=== PATIENT | female | born 1960 | race Caucasian/White ===

== ENCOUNTER 2016-11-09 21:14 | Emergency (ER) | payer OTHER ==
[~2016-11-09] VITALS: Ht 172.7 cm; Wt 86.4 kg
[~2016-11-09 21:14] MED LIST: ACYC400T2 PO; AMLO10TA3 PO; DOCU250C2 PO; HYDR2TAB27 PO; LISI10TA PO; MV-M1CAP15 PO; OMEG-38 PO; PRAZOSIN PO; QUET50TA55 PO; SERT50TA9 PO
[2016-11-09] MEDS ORDERED: Ondansetron 2 mg/mL 2 mL Inj IVPUSH PRN (21:40)
[2016-11-09] MEDS: HYDROmorphone 0.5 mg/0.5 mL iSecure Syringe IVPUSH PRN (21:45)
--- NOTE | 2016-11-09 21:46 | ED.REPORT ---
HPI-Abd Pain F 40 and Over Date of Service Nov 09, 2016 ED Provider: Zach Gil MD Pt is a 56 y/o female w/ a hx of cervical CA, colon CA, presenting to the ED c/ o abdominal pain onset yesterday. On Oct 28 at [facility] she had a total hysterectomy, kidney mass removal, colon resection, and left ureteral stenting. Yesterday, she began experiencing abdominal pain, leaking colostomy, and no urine output. Pt denies fevers, vomiting, dysuria. Nursing Notes Stated Complaint: ABDOMINAL PAIN Nursing Notes Reviewed: Yes Allergies: Coded Allergies: codeine (Verified Allergy, Severe, ANAPHYLAXIS TAKES OXYCODONE WITH NO PROBLEMS, ALSO..., 05/06/16) GIVEN HYDROMORPHONE AND FENTANYL IN 2014 morphine (Verified Allergy, Severe, ANAPHYLAXIS OK WITH OXYCODONE, 05/06/16 ) Scheduled ([Prazosin]) PO DAILY Acyclovir (Acyclovir) 400 Mg Tablet 400 MG PO BID Amlodipine (Amlodipine) 10 Mg Tablet 10 MG PO DAILY Docusate Sodium (Docusate Sodium) 250 Mg Capsule 250 MG PO EVERY OTHER DAY Lisinopril (Lisinopril) 10 Mg Tablet 10 MG PO DAILY Mv-Mn/FA/Vit K/Lycop/Lut/Coq10 (Daily Multivitamin Capsule) 200-100MCG Capsule 1 EACH PO DAILY [place]-3/Dha/Epa/Fish Oil (Fish Oil 1,000 mg Softgel) 1 Each Capsule 1 EACH PO DAILY Quetiapine Fumarate (Quetiapine Fumarate) 50 Mg Tablet 50 MG PO HS Sertraline HCl (Sertraline) 50 Mg Tablet 50 MG PO DAILY Scheduled PRN Hydromorphone (Dilaudid) 2 Mg Tablet 2 MG PO Q4H PRN PRN Pain General Time Seen by MD: 21:32 Chief Complaint Abdominal pain Hx Obtained From: Patient, EMS Arrived By: Ambulance Sudden in Onset?: No Onset Occurred: 1 day ago Symptom Duration: Since onset Progression since Onset: Gradually worsening Location: : Diffuse Quality: Painful Radiation: : Does not radiate Severity: Current: Mild Severity: Maximum: Moderate Past Medical History Past Medical History Cervical cancer Ovarian cyst Sepsis admit with diverticulitis. As part of this workup her Colon CA was diagnosed Past Surgical History Hernia repair Sigmoid colectomy Kidney mass removal Reports: Appendectomy, Cholecystectomy Smoking History Current Every Day Smoker Social History Alcohol Use: Denies alcohol use Drug Use: Denies drug use Ambulatory Status Independent Review of Systems Constitutional: Denies: Chills, Fever Respiratory: Denies: Non-productive cough, Shortness of breath Cardiovascular: Denies: Chest pain, Dyspnea on exertion GI: Reports: Abdominal pain, Denies: Nausea, Vomiting Female: Reports: Urination decreased, Denies: Dysuria Complete sys rev & neg: except as marked. Physical Exam Vital Signs Vital Signs (First) Date Time Temp Pulse Resp B/P Pulse Ox O2 Delivery O2 Flow Rate FiO2 11/09/16 21:56 37.1 82 26 100/40 96 Room Air Initial VS: Reviewed, Vital signs normal Head / Eyes: Atraumatic, Normocephalic, PERRL ENT: Mucous membranes moist, Conjunctiva normal, No scleral icterus Neck: Supple, Full range of motion Extremities: Vascular intact, Neuro intact, No swelling, No tenderness Skin: Warm, Dry, No cyanosis Neurologic: Alert, Oriented, Nonfocal Psychiatric: Mood/affect normal, Behavior normal, Normal thought content General/Constitutional: Awake, Alert, No acute distress, Cooperative, Not toxic appearing Respiratory / Chest: Atraumatic, Breath sounds NL, Breath sounds = bilat, No respiratory distress, No rales, No rhonchi, No wheezing, No retractions, No stridor, No chest tenderness, No chest wall deformity, No crepitus Cardiovascular: Heart rate NL, Regular rhythm, Heart sounds NL, No gallop, No murmurs, No rubs, Cap refill not delayed, Peripheral circulation NL Abdomen: Atraumatic, Soft, No guarding, No rebound Diffuse abdominal tenderness around the ileostomy site. No erythema Back: Full range of motion, Painless range of motion Interpretation & Diagnostics Lab Results Interpretation Result Diagram: 11/09/16212811/09/162128 Test 11/09/16 21:29 White Blood Count 22.7th/mm3 (3.8-10.1) Red Blood Count 3.73mil/mm3 (3.90-5.20) Hemoglobin 11.0g/dL (12.0-15.6) Hematocrit 33.1% (35.0-46.0) Mean Corpuscular Volume 88.7fL (81-100) Mean Corpuscular Hemoglobin 29.5pg (27.0-35.0) Mean Corpuscular Hemoglobin Concent 33.2% (32.0-37.0) Red Cell Distribution Width 14.5% (12.3-15.4) Platelet Count 559bil/L (150-400) Neutrophils (%) (Auto) 73.8% (40-74) Lymphocytes (%) (Auto) 18.3% (14-46) Monocytes (%) (Auto) 7.0% (4-12) Eosinophils (%) (Auto) 0.4% (0-5) Basophils (%) (Auto) 0.1% (0-3) Sodium Level 130mEq/L (134-144) Potassium Level 4.2mEq/L (3.5-5.2) Chloride Level 83mEq/L (97-108) Carbon Dioxide Level 24mmol/L (18-29) Blood Urea Nitrogen 45mg/dL (6-24) Creatinine 5.09mg/dL (0.57-1.00) Estimat Glomerular Filtration Rate 12mL/min (>59) Glucose Level 153mg/dL (60-99) Calcium Level 8.7mg/dL (8.5-10.1) Magnesium Level 1.8mg/dL (1.6-2.6) Total Bilirubin 0.3mg/dL (0.0-1.2) Aspartate Amino Transf (AST/SGOT) 24U/L (0-50) Alanine Aminotransferase (ALT/SGPT) 20U/L (0-32) Alkaline Phosphatase 95U/L (25-150) Total Protein 7.2g/dL (6.4-8.4) Albumin 4.0g/dL (3.4-5.0) Lipase 55U/L (13-60) CT Abd / Pelvis Interpretation Conclusion: 1. Dilatation of mild distal small bowel loops through the ileostomy. Findings suggestive of ileus. Small bowel obstruction with the zone of transition at the ostomy is a consideration in the appropriate clinical setting. 2. Moderate presacral fluid with few foci of gas. Developing abscess and/or anastomatic leak is not excluded. 3. Left ureteral stent. Radiologist: Ian Weathers MD at 0020 Study type: Abdominal CT IV contrast Interpretation / Wet Read by: Interpret - Radiologist, Discussed w radiologist Re-Eval/Medical Decision Med Decision/Clinical Course 56-year-old female with recent partial hemicolectomy, hysterectomy, removal of kidney mass at outside hospital presenting with abdominal pain today. CT head and pelvis shows obstruction versus ileus proximal to ileostomy as well as possible anastomotic leak. White blood cell count is elevated 22,000. She is anuric with no urine on Elizabeth placement and no urine in her bladder on bladder scan.. Her creatinine is 5 previously normal.. Discussed with general surgeon at [facility] who accepts transfer. Diagnosis acute kidney injury and small bowel obstruction versus ileus possible anastomotic leak. Zosyn given. Re-Evaluation/Progress : Time of Eval: 01:02 Re-Evaluation/Progress Note: Pt rechecked. Informed pt of need for transfer to for proper continuity of surgical care. She agrees with plan for transfer. Counseled Regarding: Diagnosis, Lab results, Need for transfer Discharge & Departure Primary Impression: SBO (small bowel obstruction) Additional Impression: Acute renal failure Acute renal failure type: unspecified Qualified Code: N17.9 - Acute kidney failure, unspecified Disposition: Transfer, Acute Care Facility Transfer Requested at: 01:02 Receiving Hospital: [facility] Transfer Accepted: Yes Transfer Accepted at: 01:02 Transfer Reason: Higher level of care Patient Status: Stable Patient Informed: Yes Discharge Condition All VS Reviewed: Yes Condition: Stable Referrals: Marlene Rawls MD (PCP) Michele Attestation Portions of this note were transcribed by Immanuel Wilkerson. I, Dr. Gil, personally performed the history, physical exam and medical decision-making; I reviewed and confirmed the accuracy of the information in the transcribed note. Signed by Michele Stringer, 11/09/162149 copies to: Marlene Rawls MD, Ben M MD Nov 09, 2016 21:46 IMMANUEL WILKERSON Nov 09, 2016 21:48
[2016-11-09 21:56] VITALS: BP 100/40; PULSE 82; RESP 26; O2SAT 96
[2016-11-09 22:30] LABS: BASOPHILS % (AUTO) 0.1 % (0-3); EOSINOPHILS % (AUTO) 0.4 % (0-5); Mean Corpuscular Hemoglobin 29.5 pg (27.0-35.0); Mean Corpuscular Volume 88.7 fL (81-100); NEUTROPHILS % (AUTO) 73.8 % (40-74); Platelet Count 559 bil/L (150-400)
[2016-11-09 22:35] LABS: Magnesium 1.8 mg/dL (1.6-2.6)
[2016-11-09] MEDS ORDERED: 0.9% Sodium Chloride 1,000 ML IV ONE ×2 (22:54→22:55)
[2016-11-09] MEDS ORDERED: Piperacillin-Tazo 3.375 Gm Inj 3.375 GM in Dextrose 5% Minibag Plus 50 ML IV ONE (22:55)
[2016-11-09 23:10] VITALS: BP 89/46; PULSE 80; RESP 18; O2SAT 98
[2016-11-10 00:25] VITALS: BP 103/46; PULSE 76; RESP 18; O2SAT 97
[2016-11-10] MEDS: HYDROmorphone 0.5 mg/0.5 mL iSecure Syringe IVPUSH PRN (00:34)
[2016-11-10 02:00] VITALS: BP 94/43; PULSE 79; RESP 18; O2SAT 100
[2016-11-10 02:11] VITALS: BP 89/46; PULSE 80; RESP 18; O2SAT 98
--- NOTE | 2016-11-10 10:24 | DRSVH ---
PROCEDURE: CT ABDOMEN AND PELVIS WITHOUT CONTRAST ([id number]) INDICATIONS: Abdominal pain after recent colectomy TECHNIQUE: Noncontrast 5 mm thick sections acquired from the diaphragms to the symphysis. 5 mm coronal and sagi ttal reformats were then performed. For radiation dose reduction, the following was used: automated exposure control, adjustment of mA and/or kV according to patient size. COMPARISON: [facility], CT, CHEST WITH CONTRAST, 11/14/2014, 10:02. [facility], CT, ABD/PELVIS W/CON (PNL), 10/29/2014, 3:02. [facility], CT, ABD/PELVIS W/CON (PNL), 10/06/2014, 8:25. [facility], CT, CT ABD PELVIS W CON, 09/30/2016, 10:46. FINDINGS: Image quality: Excellent. ABDOMEN: Lung bases: Lung bases are clear. Heart size is normal. Solid organs: Liver and spleen are normal in size. Gallbladder is surgically absent. Pancreas is n ormal in contours. There is a 1.2 x 1.8 cm low density nodule (-17 HU) in the right adrenal gland, mo st likely adrenal myelolipoma. Kidneys are normal in size, without hydronephrosis or nephrolithiasis . There is a left ureteral stent. Peritoneum and bowel: There is partial colectomy and a right lower quadrant ileostomy. Small bowel l oops are dilated and filled with fluid measuring up to 3.4 cm in diameter. No transitional point is i dentified. There is a small amount of free fluid in the presacral region with tiny pocket of air. Willam gical suture is noted in the rectum. Nodes and vessels: No retroperitoneal or mesenteric adenopathy by size criteria. Aorta and inferior vena cava are normal in caliber. Miscellaneous: No ventral hernias. There is a surgical scar in the anterior abdominal wall at midli ne. PELVIS: Genitourinary: Bladder is contracted with a Elizabeth catheter. Miscellaneous: No inguinal hernias or adenopathy. Bones: No suspicious bony lesions. No vertebral body compression fractures. IMPRESSION: 1. There is partial colectomy and ileostomy. Mildly dilated, fluid-filled Small bowel loops are prese nt in the abdomen to the level of ileostomy. There is no transitional point identified. The findings are most compatible with adynamic ileus. Early small bowel obstruction is less likely. 2. Small amount of free fluid with tiny pockets of air in the presacral region. Cannot rule out devel oping postoperative abscess. Recommend clinical correlation and followup. 3. There is a left ureter stent. No hydronephrosis. Elizabeth catheter is noted within the urinary bladde r. 4. Fatty mass in the right adrenal gland compatible with an adrenal myelolipoma. Dictated by: Yessenia Tate M.D. on 11/10/2016 at 10:13 Transcribed by: ANIBAL on 11/10/2016 at 10:24 Approved by: Yessenia Tate M.D. on 11/10/2016 at 19:45
[2017-01-29] MEDS ORDERED: PANT40TA3 PO (08:23)
== END 2016-11-10 02:05 | disposition short-term general hospital (02) ==
LOC: SED 21:14 → EDBD 21:14 → SED 11-10 02:05
DX: K56.69 Other intestinal obstruction (principal); N17.9 Acute kidney failure, unspecified; F17.200 Nicotine dependence, unspecified, uncomplicated; Z90.49 Acquired absence of other specified parts of digestive tract; Z88.5 Allergy status to narcotic agent
CPT/HCPCS: 36415; 51702; 74176; 80053; 83690; 83735; 85025; 87040; 96361; 96365; 96375; 96376; 99285; J1170; J2405; J2543; J7030

== ENCOUNTER 2016-11-14 11:20 | Emergency (ER) | payer OTHER ==
[2016-11-14 11:31] VITALS: BP 162/89; PULSE 100; RESP 18; O2SAT 98
--- NOTE | 2016-11-14 12:02 | ED.REPORT ---
HPI-General Illness Date of Service Nov 14, 2016 ED Provider: Alexis Smith PA-C Bernadette is a 56-year-old female with history of colon cancer presents because she cannot get her colostomy bag to stay on. Patient has a history of a recent admission to [facility] for hysterectomy bilateral salpingo-oophorectomy, proctectomy and coloproctostomy and discharged approximately 9 days ago. She was readmitted 5 days ago and discharged again 2 days ago after was noted that she had extremely low blood pressure in this emergency department. At that time she presented for similar complaint. Today she complains of skin pain around the ostomy site, but states that the ostomy itself is not painful. The ostomy is producing fecal matter regularly. She admits abdominal pain which she associates with her recent procedure and reports has been steadily improving since her surgery. She denies fever, chills, malaise, vomiting, difficulty breathing, chest pain and urinary symptoms. Nursing Notes Stated Complaint: COLECTOMY BAG ISSUES Chief Complaint: General Complaint Nursing Notes Reviewed: Yes Allergies: Coded Allergies: codeine (Verified Allergy, Severe, ANAPHYLAXIS TAKES OXYCODONE WITH NO PROBLEMS, ALSO..., 05/06/16) GIVEN HYDROMORPHONE AND FENTANYL IN 2014 morphine (Verified Allergy, Severe, ANAPHYLAXIS OK WITH OXYCODONE, 05/06/16 ) Scheduled ([Prazosin]) PO DAILY Acyclovir (Acyclovir) 400 Mg Tablet 400 MG PO BID Amlodipine (Amlodipine) 10 Mg Tablet 10 MG PO DAILY Docusate Sodium (Docusate Sodium) 250 Mg Capsule 250 MG PO EVERY OTHER DAY Lisinopril (Lisinopril) 10 Mg Tablet 10 MG PO DAILY Mv-Mn/FA/Vit K/Lycop/Lut/Coq10 (Daily Multivitamin Capsule) 200-100MCG Capsule 1 EACH PO DAILY [place]-3/Dha/Epa/Fish Oil (Fish Oil 1,000 mg Softgel) 1 Each Capsule 1 EACH PO DAILY Quetiapine Fumarate (Quetiapine Fumarate) 50 Mg Tablet 50 MG PO HS Sertraline HCl (Sertraline) 50 Mg Tablet 50 MG PO DAILY Scheduled PRN Hydromorphone (Dilaudid) 2 Mg Tablet 2 MG PO Q4H PRN PRN Pain General Time Seen by MD: 11:31 Chief Complaint Other (cannot seal colostomy bag) Past Medical History Past Medical History Cervical cancer Ovarian cyst Sepsis admit with diverticulitis. As part of this workup her Colon CA was diagnosed Past Surgical History Hernia repair Sigmoid colectomy Kidney mass removal Reports: Appendectomy, Cholecystectomy Smoking History Current Every Day Smoker Social History Alcohol Use: Denies alcohol use Drug Use: Denies drug use Ambulatory Status Independent Review of Systems General: Denies fever, chills, malaise. HEENT: Denies congestion, headache, sore throat. Respiratory: Denies dyspnea, cough, shortness of breath, wheezing. Cardiovascular: Denies chest pain, palpitations. Gastrointestinal: Denies vomiting, diarrhea, abdominal pain. Genitourinary: Denies frequency, urgency, dysuria, hematuria. Otherwise as noted in HPI. Physical Exam General: Well appearing, well developed, well nourished, no acute distress. Head: Atraumatic, normocephalic. Eyes: No scleral icterus or injection. No discharge. Vision grossly intact. ENT: Voice clear, hearing grossly intact. Respiratory: Regular rate and rhythm. Breath sounds present, clear to auscultation and equal bilaterally. No respiratory distress. No increased work of breathing, speaks in complete sentences. Cardiovascular: Regular rate and rhythm, without murmur, gallop or rub. No pedal edema. Gastrointestinal: Ostomy in right lower quadrant, without bag affixed. Productive of soft greenish brown fecal matter, not prolapsed. Surrounding region of erythema and tenderness to light touch. No induration, abscess or discharge. Incision sites are clean, dry, nontender and appear to be healing well. Abdomen otherwise mildly tender without guarding or rebound. Bowel sounds normoactive. Skin: Warm and dry. Neurological: Grossly nonfocal. Psychological: Alert and oriented. Speech appropriate, linear and logical. Behavior appropriate. Vital Signs Vital Signs Date Time Temp Pulse Resp B/P Pulse Ox O2 Delivery O2 Flow Rate FiO2 11/14/16 11:31 37.0 100 18 162/89 98 Room Air Initial VS: Reviewed, Vital signs abnormal (borderline tachycardia, elevated blood pressure) Re-Eval/Medical Decision Med Decision/Clinical Course Discussed the case with Dr. Parmar who met with and examine the patient. 13-year-old female with a history of colon cancer and a recent surgery resulting in colostomy presents because she cannot get her colostomy bag affixed. She complains of skin pain around the ostomy site but feels otherwise well and reports that she has reduced use of her pain medication. Denies fever , chills, malaise, vomiting. Physical examination is reassuring. There is mild global abdominal tenderness without guarding or rebound which seems consistent with healing abdominal surgery. Incision sites are clean and dry. Ostomy is not prolapsed and is productive of soft greenish brown feces. There is a surrounding area of erythematous and tender skin. No induration, abscess or discharge. Vital signs reveal a borderline tachycardia as well as elevated blood pressure. I believe her skin pain is due to irritation from fecal matter on her skin. I find no indication of infection, obstruction or sepsis. I believe she is stable to be discharged home. Provide some pain relief with acetaminophen and 5 mg oxycodone. Nurse from wound care affixed colostomy bag and provided education to the patient. Also provided follow-up appointment and contact information. I provided emergency follow-up instructions. Patient understands and agrees with the plan Discharge & Departure Primary Impression: Colostomy malfunction Additional Impressions: Skin irritation Elevated blood pressure Disposition: Home Discharge Condition All VS Reviewed: Yes Condition: Stable Patient Instructions: Colostomy Care (ED) Additional Instructions: Evaluation in the emergency department for colostomy bag malfunction. History and physical are reassuring that there is no dangerous condition or complication from your surgery. You were seen by wound care and a colostomy bag was reapplied. He was given care instructions and have an appointment to be seen in the wound care center Thursday at 4:00. Please follow-up then. They may be able see you Thursday if you have any difficulty before then. I also note that your blood pressure was elevated during your visit to the emergency department. Please discuss this with your primary care provider. Return to emergency department for any new or worsening symptoms including increasing abdominal pain, fever, vomiting. Referrals: Marlene Rawls MD (PCP) EDSupervising Provider for APC: Hayes Beverly DO Attending Statement I have seen and examined the patient. I have reviewed the chart and agree with the documentation as recorded by the Midlevel Provider, including assessment, treatment plan, and disposition. Findings from my exam are included in documentation above. copies to: Marlene Rawls MD, Seth PA-C Nov 14, 2016 12:02 Hayes Beverly DO Nov 15, 2016 08:56
--- NOTE | 2016-11-14 14:06 | NUR ---
Wound Care Pt seen at request of ED staff for application of iliostomy appliance, pt is painful and periwound skin is excoriated from 9 o'clock through 3 o'clock, skin was cleaned and new appliance was placed utilizing jayson seal over excoriated skin and a 57 mm moldable puch with a ostomy belt. Patient to follow up at wound center with ostomy provider Saturday 11/18.
[2017-01-29] MEDS ORDERED: PANT40TA3 PO (08:23)
== END 2016-11-14 13:11 | disposition home or self-care (01) ==
LOC: SED 11:20
DX: K94.03 Colostomy malfunction (principal); Y73.2 Prosthetic and other implants, materials and accessory gastroenterology and urology devices associated with adverse incidents; Y92.9 Unspecified place or not applicable; Y93.9 Activity, unspecified; Y99.9 Unspecified external cause status; L98.9 Disorder of the skin and subcutaneous tissue, unspecified; R03.0 Elevated blood-pressure reading, without diagnosis of hypertension; C18.9 Malignant neoplasm of colon, unspecified; F17.200 Nicotine dependence, unspecified, uncomplicated; Z90.710 Acquired absence of both cervix and uterus; Z90.49 Acquired absence of other specified parts of digestive tract; Z93.3 Colostomy status; Z88.5 Allergy status to narcotic agent

== ENCOUNTER 2016-12-18 09:14 | Day surgery (SDC) | payer OTHER ==
[~2016-12-18] VITALS: Ht 172.7 cm; Wt 83.2 kg
--- NOTE | 2016-12-18 07:55 | PCM.HPANE ---
Patient Data Surgeon Admitting Provider: Attending Provider:Brian Alexander MD Primary Care Physician:Marlene Rawls MD Other Provider:Lyn Peterseningham Anesthesia Reason for Visit Low Recurrent Colon Cancer Ht/WT & BMI Height (Feet): 5 Height (Inches): 8 Weight (Kilograms): 88.45 Body Mass Index 29.00 Allergies Coded Allergies: codeine (Verified Allergy, Severe, ANAPHYLAXIS TAKES OXYCODONE WITH NO PROBLEMS, ALSO..., 05/06/16) GIVEN HYDROMORPHONE AND FENTANYL IN 2014 morphine (Verified Allergy, Severe, ANAPHYLAXIS OK WITH OXYCODONE, 05/06/16 ) Past Anesthesia History Anesthesia History: Denies:: Abnormal Airway, Anesthesia Reactions, Difficult Intubation, Fam Anesthesia Reaction, Fam Malignant Hypertherm, Malignant Hyperthermia Diabetes History Hx Diabetes?: No MRSA MRSA: No Medications Reported Medications Hydrocodone-Acetaminophen 5-325 mg 1 Each Tablet1 Tablet PO Q6 PRN Ref 0 12/18/16 Hydromorphone (Dilaudid)2 Mg Tablet2 Mg PO Q4H PRN Pain 10/02/16 Quetiapine Fumarate 50 Mg [id number] Mg PO HS Ref 0 09/23/16 Mv-Mn/FA/Vit K/Lycop/Lut/Coq10 (Daily Multivitamin Capsule)200-100MCG Capsule1 Each PO DAILY 09/23/16 [place]-3/Dha/Epa/Fish Oil (Fish Oil 1,000 mg Softgel)1 Each Capsule1 Each PO DAILY 09/23/16 Acyclovir 400 Mg [id number] Mg PO BID Ref 0 09/23/16 Lisinopril 10 Mg [id number] Mg PO DAILY Ref 0 09/23/16 [Prazosin] No Conflict Check Po Daily 09/23/16 Amlodipine 10 Mg [id number] Mg PO DAILY Ref 0 09/23/16 Sertraline HCl (Sertraline)50 Mg [id number] Mg PO DAILY Ref 0 09/23/16 Docusate Sodium 250 Mg [id number] Mg PO EVERY OTHER DAY 30 Days Ref 0 11/30/14 History History of ENT Problems?: No HEENT History: Denies:: Abnormal Airway Difficult Intubation Hearing Problem Denture Type: None Teeth Condition: Within Normal Limits Hx of Heart Problems?: Yes Cardiovascular History: Positive for:: Irregular Heartbeat (Palpitations) Denies:: Cardiac Surgery Chest Pain Congestive Heart Failure Edema Heart Murmur Hypertension Pacemaker Thrombophlebitis Hx of Respiratory Problem?: No Respiratory History: Denies:: Tuberculosis Use of C-PAP Machine Hx Neurologic Problems?: No Neurological History: Denies:: Alzheimer's Disease CVA Dementia Dizziness Headaches Parkinson's Disease Seizures Hx of GI Problems?: Yes Gastrointestinal History: Positive for:: Gastrointestinal Bleeding Heartburn Rectal Bleeding Denies:: Diverticulitis Gastroesphageal Reflux Hepatitis Hiatal Hernia Other GI Pertinent History: recent surgery 10/2016- colectomy with diverting loop ileostomy Hx of Problems?: No Genitourinary History: Denies:: HX of Hemodialysis (treated at post surgery for anuria) HX of Peritoneal Dialysis: No Female Hx: Denies:: Currently Endometriosis Pelvic Inflammatory Problems with Breasts? Skin History: Denies:: History Skin Disorders? Pressure Ulcers Hx Musculoskeletal Problems?: No Musculoskeletal History: Denies:: Fibromyalgia Joint Replacement Hx of Psycho/Social Problems?: No Psycho Social History: Denies:: Anxiety Bipolar Disorder Hx Depression Suicide Attempt Hx Surgeries?: Yes (Appy, gallbladder removed, , COLECTOMY, hyst) Hx Any Other Health Problems?: Yes Other History: Positive for:: Cancer (COLON) Endocrine Disease (17MM RT ADRENAL NODULE-UNDERGOING TESTING FOR PHEOCHROMOCYTOMA) Hospitalization (ER visit) Denies:: Thyroid Disease History Blood Transfusions: Denies:: Blood Transfuse Reaction Blood Transfusions Hx Diabetes: No Hx Alcohol Use: No (OCCAS)Hx Substance Use: No Smoking Status: Current Every Day Smoker Have You Smoked inLast 12 mo: Yes Stop/Bang S-Snoring: Do You Snore Loudly: No T-Tired: feel tired, fatigued: Yes O-Obsered: Observed not breath: No P-Blood Pressure: treated: Yes B- Body Mass Index > 35 kg/m2: No A- Age over 50: Yes N- Neck Large Circumference: No G- Gender Male: No CANDIDA Total Score: 3 Risk Assessment Category Category 1A: Patient has history of documented sleep apnea, and HAS NOT received any narcotic, sedative or anesthesia administration during this stay. Category 1B: Patient has history of documented sleep apnea, and HAS received any narcotic , sedative or anesthesia administration during this stay Category 2: Patient has SUSPECTED Obstructive Sleep Apnea, and HAS received any narcotic , sedative or anesthesia administration during this stay. Category 3: Patient has SUSPECTED Obstructive Sleep Apnea and HAS NOT received narcotic, sedative or anesthesia administration during this stay. Category 4: Outpatient in Procedural Areas with known sleep apnea or who screen positive for High Risk via the STOP/BANG questionnaire. Exam Exam General Appearance: Alert, Oriented X3, Cooperative, No Acute Distress HEENT/AIRWAY: MP 1 Lungs: Normal Air Movement Heart: Regular Rate/Rhythm Plan Impression Patient chart reviewed, patient interviewed and anesthestic plan with risks, benefits, and alternatives discussed, and informed consent obtained. ASA Physical Status: ASA3 Severe Disease Anesthetic Plan: MAC Bene/Risks/Altern/Consents: Yes HP Complete Prior to Induction: Yes Carmella Perez DO Dec 18, 2016 07:55
[~2016-12-18 09:14] MED LIST changes: +CeFAZolin Inj 2 GM in IV Premix 1 EACH IV ONE
[2016-12-18] MEDS ORDERED: Propofol 10,000 mCg/mL 20 mL Inj ONE (09:15)
[2016-12-18 09:35] VITALS: BP 120/73; PULSE 81; RESP 12; O2SAT 96
[2016-12-18] MEDS ORDERED: HYDR-4003 PO (10:34)
[2016-12-18] MEDS: Lactated Ringer's 1,000 ML IV SCH ×2 (10:42→11:05)
[2016-12-18] MEDS ORDERED: Bupivacaine-MPF 0.25%/EPI 30 mL Inj INJ ONE (11:05)
[2016-12-18] MEDS ORDERED: Lidocaine PF 1% 30 mL Inj INFILTRATE ONE (11:05)
[2016-12-18 11:56] VITALS: BP 109/78; PULSE 69; RESP 16; O2SAT 98
--- NOTE | 2016-12-18 12:24 | DRSVH ---
PROCEDURE: X-RAY CHEST ONE VIEW, PORTABLE ([id number]) INDICATIONS: port TECHNIQUE: One view of the chest was acquired. COMPARISON: [facility], , CHEST 1VW (PORTABLE), 12/07/2014, 14:16. FINDINGS: Surgical changes and devices: There is a new left chest wall subclavian Port-A-Cath with the tip exte nding into the superior vena cava approximately 4.5 cm from the cavoatrial junction. Lungs and pleura: No pleural effusions or pneumothorax. Lungs are clear. Mediastinum: Mediastinal contours appear normal. Heart size is normal. Bones and chest wall: No suspicious bony lesions. Overlying soft tissues appear unremarkable. IMPRESSION: 1. New catheter extends into the superior vena cava. 2. No evidence of pneumothorax. Dictated by: Jackson Granados M.D. on 12/18/2016 at 12:21 Approved by: Jackson Granados M.D. on 12/18/2016 at 12:22
[2016-12-18 12:31] VITALS: BP 125/59; PULSE 80; RESP 14; O2SAT 97
[2016-12-18] MEDS ORDERED: HYDROcodone-APAP 5-325 mg Tablet PO ONE (12:45)
--- NOTE | 2016-12-18 22:13 | OP ---
[address] [address] OPERATIVE REPORT PATIENT: EDGARD SAMANO : 1960 MR#: [id number] ADMIT: 12/18/2016 JOB ID: [id number] DATE OF SURGERY: 12/18/1016 ANESTHESIA: MAC with local. PREOPERATIVE DIAGNOSIS(ES): Recurrent colon cancer. POSTOPERATIVE DIAGNOSIS(ES): Recurrent colon cancer. OPERATIVE PROCEDURE: Insertion of left subclavian vein Port-A-Cath using fluoroscopy with interpretation for guidance. SURGEON: Brian Alexander MD. ORNAMENT SETTER: Bradford Ballesteros PA-C. COMPLICATIONS: None. ESTIMATED BLOOD LOSS: Minimal CONDITION: Satisfactory. SPECIMEN: None. FINDINGS: Regular Profile Port was inserted into the left subclavian vein without complication. INDICATIONS/SIGNIFICANT HISTORY: The patient is a 56-year-old female who had resection of sigmoid colon cancer number of years ago. She recently developed a recurrence, for which she underwent repeat resection with positive margins. . OPERATIVE TECHNIQUE: The patient was taken to the operating room and placed in supine position. Light sedation was administered and preoperative antibiotics were given. The neck and chest were prepped and draped in standard surgical fashion and procedure pause was performed. The left subclavian vein was accessed with the first pass of a finder needle. A wire was inserted in the vein and position confirmed with fluoroscopy. The wire was seen to course through the heart down into the inferior vena cava confirming it was in the venous system. Local anesthetic was injected and a subcutaneous pocket was created in the left anterior chest. The Port-A-Cath was secured in place using three 2-0 Prolene sutures. The catheter was tunneled up to the wire exit point using insert into the vein under fluoroscopic visualization using Seldinger technique. The port aspirated and flushed nicely. This was locked with heparin. The skin was closed using 3-0 Vicryl deep dermals, followed by running 4-0 Monocryl. Dermabond was applied. The entire procedure was well tolerated without complications.
[2017-01-29] MEDS ORDERED: PANT40TA3 PO (08:23)
== END 2016-12-18 23:59 | disposition home or self-care (01) ==
LOC: SAS 09:14
PROVIDERS: ATTEND General Practice
DX: C18.7 Malignant neoplasm of sigmoid colon (principal); N17.9 Acute kidney failure, unspecified; Z92.21 Personal history of antineoplastic chemotherapy
CPT/HCPCS: 36561; 71010; 77001; 80048; C1788; J0690; J2250; J7120